=== PATIENT | male | born 1935 | race Caucasian/White ===

== ENCOUNTER 2016-04-10 14:52 | Emergency (ER) | payer OTHER, MEDICAID ==
[2016-04-10 15:00] VITALS: BP 147/90; PULSE 70; RESP 16; TEMP 97.9; O2SAT 95
--- NOTE | 2016-04-10 15:59 | EDPHY ---
HPI/HX/ROS/PE/MDM Narrative: CHIEF COMPLAINT: Hematuria HPI: The patient is an 80 y/o male complaining of hematuria onset yesterday, 2 days after Moreland placement at the ED. He went to [facility] for urinary retention related to BPH on Monday and had a Moreland catheter placed with relief of his symptoms. He has a follow up appointment scheduled with urology tomorrow to remove it. He began bleeding last night around 18:00 and describes dark red blood in his urinary bag. No abdominal pain. He reports a history of "thin skin " that bleeds easily and an esophageal tear. He is not on anticoagulants. He was diagnosed with shingles, but has no current active lesions. REVIEW OF SYSTEMS: Aside from elements discussed in the HPI, a comprehensive 10-point review of systems was reviewed and is negative. PMH: BPH with urinary retention, shingles, esophageal tear SOCIAL HISTORY: Lives in [place] PHYSICAL EXAM: General:Patient is alert, in no acute distress. ENT:Eyes are normal to inspection. ENT inspection normal. Neck: Normal inspection. Full range of motion. Respiratory:No respiratory distress. Breath sounds normal bilaterally. Cardiovascular: Regular rate and rhythm. Strong peripheral pulses. Normal cap refill. Abdomen:The abdomen is nontender to palpation. There are no peritoneal signs. There are normal bowel sounds. Dark red blood in urinary bag. Back: Normal to inspection. No tenderness to palpation. Skin: Normal color. No rash. Warm and dry. No active shingles lesions, well- healed shingles site on right lateral ribs Extremities: Normal appearance. Full range of motion. Neuro: Oriented x3. Normal motor function. Normal sensory function. ED Course: Records requested from [facility] show he was referred to Dr. Cárdenas, [facility], for follow up on Monday. 1814: Consulted with Dr. Sosa, urology. He recommends replacing catheter with a larger catheter and following up with urology tomorrow as planned. MDM: Per recommendations from Urology, the patient's Moreland catheter was removed and exchanged with a larger bore Moreland catheter. This was performed without incident and the patient has good flow of urine without evidence of clots. Patient does not have evidence of hemorrhagic shock or life-threatening bleeding. Patient has plans to follow up with Urology tomorrow in clinic. - Data Points Laboratory Results: Laboratory Results 04/10/16 17:05 04/10/16 17:08 04/10/16 04/10/16 17:08 17:05 WBC 4.39 10^3/uL (3.80-9.50) RBC 3.97 L 10^6/uL (4.40-6.38) Hgb 12.8 L g/dL (13.7-17.5) Hct 35.7 L % (40.0-51.0) MCV 89.9 fL (81.5-99.8) MCH 32.2 pg (27.9-34.1) MCHC 35.9 g/dL (32.4-36.7) RDW 13.3 % (11.5-15.2) Plt Count 176 10^3/uL (150-400) MPV 9.4 fL (8.7-11.7) Neut % (Auto) 68.1 % (39.3-74.2) Lymph % (Auto) 20.7 % (15.0-45.0) Hudson % (Auto) 8.4 % (4.5-13.0) Eos % (Auto) 1.4 % (0.6-7.6) Baso % (Auto) 0.7 % (0.3-1.7) Nucleat RBC Rel Count 0.0 % (0.0-0.2) Absolute Neuts (auto) 2.99 10^3/uL (1.70-6.50) Absolute Lymphs (auto) 0.91 L 10^3/uL (1.00-3.00) Absolute Monos (auto) 0.37 10^3/uL (0.30-0.80) Absolute Eos (auto) 0.06 10^3/uL (0.03-0.40) Absolute Basos (auto) 0.03 10^3/uL (0.02-0.10) Absolute Nucleated RBC 0.00 10^3/uL (0-0.01) Immature Gran % 0.7 % (0.0-1.1) Immature Gran # 0.03 10^3/uL (0.00-0.10) PT 13.5 SEC (12.0-15.0) INR 1.04 (0.83-1.16) APTT 27.1 SEC (23.0-38.0) Sodium 137 mEq/L (134-144) Potassium 4.1 mEq/L (3.5-5.2) Chloride 108 mEq/L (97-110) Carbon Dioxide 21 L mEq/l (22-31) Anion Gap 8 mEq/L (8-16) BUN 22 mg/dL (7-23) Creatinine 1.4 H mg/dL (0.7-1.3) Estimated GFR 49 Glucose 98 mg/dL (70-100) Calcium 9.0 mg/dL (8.5-10.4) General Initial Vital Signs: Initial Vital Signs Temperature (C) 36.6 C 04/10/16 14:56 Heart Rate 70 04/10/16 14:56 Respiratory Rate 16 04/10/16 14:56 Blood Pressure 147/90 H 04/10/16 14:56 O2 Sat (%) 95 04/10/16 14:56 O2 Delivery Mode Room Air Allergies/Adverse Reactions: Penicillins Allergy (Verified 04/10/16 14:55) localized reaction to injection Home Medications: Medication Instructions Recorded Tamsulosin HCl [Flomax] 0.4 mg PO 07/13/15 LYRICA 04/10/16 Departure - Departure Disposition: Home, Routine, Self-Care Clinical Impression: Hematuria Condition: Good Instructions: Hematuria (ED), Moreland Catheter Placement and Care (ED) Additional Instructions: Follow up with Dr. Cárdenas at [facility] tomorrow as previously directed. Referrals: Jonny Grant DO [Primary Care Provider] - As per Instructions Jonny Cárdenas MD [Medical Doctor] - As per Instructions Report Scribed for: Nahun Keen Report Scribed by: Julia Kilgore Date of Report: 04/10/16 Time of Report: 15:59
[2016-04-10 17:19] LABS: % IMMATURE GRANULYOCYTES 0.7 % (0.0-1.1); ABSOLUTE IMMATURE GRANULOCYTES 0.03 10^3/uL (0.00-0.10); ADD DIFF? NO; ADD MORPH? NO; ADD SCAN? NO; ATYPICAL LYMPHOCYTE FLAG 0 (0-99); FRAGMENT RBC FLAG 0 (0-99); HEMATOCRIT 35.7 % (40.0-51.0); HEMOGLOBIN 12.8 g/dL (13.7-17.5); LEFT SHIFT FLG 0 (0-99); LIPEMIA HEMOLYSIS FLAG 90 (0-99); MEAN CELL HEMOGLOBIN 32.2 pg (27.9-34.1); MEAN CELL HEMOGLOBIN CONCENTR. 35.9 g/dL (32.4-36.7); MEAN CELL VOLUME 89.9 fL (81.5-99.8); MEAN PLATELET VOLUME 9.4 fL (8.7-11.7); PLATELET CLUMPS FLAG 10 (0-99); PLATELET COUNT 176 10^3/uL (150-400); RED BLOOD CELL COUNT 3.97 10^6/uL (4.40-6.38); RED CELL DISTRIBUTION WIDTH 13.3 % (11.5-15.2)
[2016-04-10 17:25] LABS: APTT 27.1 SEC (23.0-38.0); INR 1.04 (0.83-1.16); PROTIME(PATIENT) 13.5 SEC (12.0-15.0)
[2016-04-10 18:07] LABS: ANION GAP 8 mEq/L (8-16); CARBON DIOXIDE 21 mEq/l (22-31); CHLORIDE 108 mEq/L (97-110); CREATININE 1.4 mg/dL (0.7-1.3); GLOMERULAR FILTRATION RATE 49; GLUCOSE 98 mg/dL (70-100); POTASSIUM 4.1 mEq/L (3.5-5.2); SODIUM 137 mEq/L (134-144)
[2016-04-10] MEDS ORDERED: LIDOCAINE 2% JELLY 20 ML (UROJECT) UR ONE (18:26)
== END 2016-04-10 19:41 | disposition home or self-care (01) ==
PROC: 0T9B70Z Drainage of Bladder with Drainage Device, Via Natural or Artificial Opening (ICD-10-PCS; principal; 2016-04-10)
DX: R31.9 Hematuria, unspecified (principal)